=== PATIENT | female | born 1965 | race Caucasian/White ===

== ENCOUNTER 2023-11-13 10:59 | Observation (INO) ==
[2023-11-13] MEDS: ONDANSETRON INJ 2 MG/ML 2 ML VIAL IV STA (11:38)
[2023-11-13 11:56] LABS: Basophils # (auto) 0.04 K/uL (0.00-0.20); Basophils % (auto) 0.7 %; Eosinophils # (auto) 0.08 K/uL (0.00-0.50); Eosinophils % (auto) 1.3 %; Hemoglobin 15.3 g/dl (12.0-16.0); Immature Granulocytes # (auto) 0.02 K/uL (0.01-0.20); Immature Granulocytes % (auto) 0.3 %; Lymphocytes # (auto) 1.96 K/uL (1.20-3.40); Lymphocytes % (auto) 32.7 %; Mean Corpuscular Hemoglobin 28.9 pg (25.0-34.0); Mean Corpuscular Volume 85.1 fL (80.0-100.0); Mean Platelet Volume 8.4 fL (9.4-12.4); Monocytes # (auto) 0.31 K/uL (0.11-0.59); Monocytes % (auto) 5.2 %; Neutrophils # (auto) 3.59 K/uL (1.40-6.50); Neutrophils % (auto) 59.8 %; Platelet Count 344 K/uL (130-400); RDW Standard Deviation 43.5 fL (36.4-46.3); Red Blood Count 5.29 M/uL (4.20-5.40)
[2023-11-13 12:02] LABS: Partial Thromboplastin Ratio 0.9; Partial Thromboplastin Time 26 Seconds (21-31); Prothrombin Time 10.7 Seconds (9.0-12.0)
[2023-11-13 12:14] LABS: Alanine Aminotransferase 20 U/L (7-52); Albumin Globulin Ratio 1.4 (0.9-2); Albumin Level 4.6 gm/dl (3.4-5.0); Alkaline Phosphatase 67 U/L (34-104); Anion Gap 5 (3-11); Aspartate Aminotransferase 22 U/L (13-39); BUN Creatinine Ratio 31.8 (10-20); Bilirubin,Total 0.4 mg/dl (0.2-1.0); Blood Urea Nitrogen 21 mg/dl (6-23); Carbon Dioxide 28 mmol/L (21-32); Chloride 105 mmol/L (98-107); Est GFR (African American) 112.1 ml/min; Est GFR (Non-African American) 96.7 ml/min; Globulin 3.2 gm/dl (2.5-4.0); Glucose 116 mg/dl (70-99(Fasting)); Potassium 4.5 mmol/L (3.5-5.1); Sodium 138 mmol/L (136-145); Total Protein 7.8 gm/dl (6.0-8.3)
[2023-11-13 12:20] LABS: Troponin I High Sensitivity 2.7 pg/ml (0-14)
--- NOTE | 2023-11-13 12:46 | Emergency Department Note ---
Impression & Plan Vertigo, Hypertension ED Provider Note Name: NANI MENESES Age: 58 Sex: Female Arrives Via: Ambulance Informant: Patient ED Provider: Julian Nicholas MD Chief Complaint: Dizziness Impression: As per impressions above Medical Decision Makin-year-old female arrives for evaluation of dizziness. Onset over the last evening. Seems very much vertiginous in nature with horizontal nystagmus no strokelike findings no trauma. Does have some vague photophobia but no nuchal rigidity and otherwise has no evidence of meningitis. Laboratory workup is benign. CT of the head is unremarkable. She was given Ativan and meclizine with mild improvement but continues to have pretty significant symptoms with sitting up. Attempted second round and quite prolonged monitoring in the ER over several hours. Unfortunately symptoms persist. Due to this hospitalist was consulted for further management. Triage/Nursing Notes reviewed by Me Differential:Benign positional vertigo, dehydration, hypovolemia, anemia, tumor, infection, hypoglycemia, electrolyte abnormalities, cardiac sources, intracerebral event, toxicologic, neurologic, as well as other pathologies. Vital Signs: reviewed and remarkable for hypertension Interventions: Ativan 1 mg IV x 2, meclizine 25 mg p.o. x 2, normal saline bolus 1 L IV Labs:ED labs Reviewed by me and remarkable for no significant abnormalities Imaging:CT of the head without contrast as per my informal interpretation reveals no intracranial hemorrhage or mass effect. Confirmed by radiologist. EKG:As per my interpretation. Indication new onset vertigo. Normal sinus rhythm at 79 bpm QTc 421. There is no ectopy nor ischemia. Compared to EKG from 11/14/2023 there is no acute change. Cardiac/Tele Monitoring: Cardiac Monitoring: An Order was placed for continuous cardiac monitoring. The monitor shows a rate of 75 with a normal sinus rhythm. Consults:Discussed with Dr Whittington of the [facility] hospitalist service who will evaluate and bring in for further management. Plan: Disposition:Hospitalization. Condition: Good History of Present Illness: 58-year-old female arrives for evaluation of dizziness. Onset last evening gradually worsening. Associated with some mild frontal headache and some mild photophobia. Denies any photophobia or neck stiffness. No fevers, chills, neurologic deficits. Does have some mild difficulty walking due to dizziness. States the world is spinning on her. States she cannot focus anything due to spinning. She admits she is moderately dehydrated on a regular basis. She also admits that she recently traveled to the area and has been under fair amount of stress helping her mother. No medications prior to arrival. No falls, trauma, injuries. No blood thinner use. No chest pain, shortness of breath abdominal pain, back pain, urinary symptoms, diarrhea, leg swelling, calf pain or other concerning signs or symptoms. No history of blood clotting or bleeding issues. Past Medical History: None Home Medications: None Allergies: No known drug allergies Vitals:Blood Pressure: 168/104, Pulse 74, RR 20, T 36.5 C, O2 100% on RA Physical Exam: GENERAL: Patient is very uncomfortable appearing appearing and in mild distress. HEAD: ATNC RESPIRATORY: No dyspnea. Clear to auscultation and equal bilaterally. CARDIOVASCULAR: Regular rate and rhythm.No murmur appreciated. GASTROINTESTINAL: Abdomen soft, non-tender, no peritonitis. EXTREMITIES: Normal motion all extremities, no cyanosis, no edema. NEUROLOGIC: Alert and oriented. No focal neurologic deficits appreciated. Strong horizontal nystagmus bilaterally. SKIN: No rash, no jaundice, no diaphoresis. PSYCH: Appropriate GCS: 15 ED Course: Times/Reassessments: Persistent symptoms despite medications and time in the ER. Agreeable to hospitalization. Julian Nicholas MD Past Med/Surg History Social History Smoking Status: Never smoker Hx Alcohol Use: No Hx Substance Use: No Preferred Language: Turkish Communication Ability: Effective Beliefs That Will Affect Care: None Current Living Situation: Alone Feels Safe at Home: Yes Safety Concerns: Feels Safe At This Time Allergies Allergies Allergy/AdvReac Type Severity Reaction Status Date / Time codeine Allergy Unknown STRONG Verified 11/13/23 15:26 FAMILY HX--ALLERGY Home Meds Home Medications Medication Instructions Recorded Confirmed inulin-sorbitol 2 gram chewable 2 tab PO DAILY 11/13/23 11/13/23 tablet meloxicam 7.5 mg tablet 7.5 mg PO DAILY PRN Pain 11/13/23 11/13/23 omega 7-peu-slu-fish oil 1,000 mg 2 cap PO DAILY 11/13/23 11/13/23 (120 mg-180 mg) capsule (Fish Oil) tramadol 50 mg tablet 50 mg PO DIRECTED PRN Pain 11/13/23 11/13/23 Results & Data (ED) Vital Signs Vital Signs - 24 hr 11/13/23 11:08 11/13/23 13:43 11/13/23 13:47 Temperature 36.5 C Temperature Source Temporal Artery Scan Pulse Rate 75 68 Pulse Rate [Right Finger] 72 Pulse Rate from SpO2 Sensor Pulse Rhythm Regular Pulse Strength Normal Respiratory Rate 20 20 16 Respiratory Effort / Characteristics Non-Labored Spontaneous Respiratory Depth Normal Respiratory Pattern Regular Blood Pressure 168/104 H Blood Pressure [Right Arm] 171/95 H Blood Pressure Mean 125 Blood Pressure Mean [Right Arm] 120 Blood Pressure Position Sitting Pulse Oximetry 100 96 97 Oxygen Delivery Method Room Air Room Air Room Air Oxygen Flow Rate Sepsis Recent Fever Within 48 Hours No Sepsis New/Unexplained Change in Mental Status No Sepsis Action Taken by Nursing No Action Required 11/13/23 13:47 11/13/23 13:50 11/13/23 14:00 Temperature Temperature Source Pulse Rate 75 63 Pulse Rate [Right Finger] Pulse Rate from SpO2 Sensor 73 Pulse Rhythm Pulse Strength Respiratory Rate 17 Respiratory Effort / Characteristics Respiratory Depth Respiratory Pattern Blood Pressure 140/89 Blood Pressure [Right Arm] Blood Pressure Mean 112 Blood Pressure Mean [Right Arm] Blood Pressure Position Pulse Oximetry 95 Oxygen Delivery Method Oxygen Flow Rate Sepsis Recent Fever Within 48 Hours Sepsis New/Unexplained Change in Mental Status Sepsis Action Taken by Nursing 11/13/23 14:00 11/13/23 14:30 11/13/23 14:30 Temperature Temperature Source Pulse Rate 61 71 Pulse Rate [Right Finger] Pulse Rate from SpO2 Sensor 60 70 Pulse Rhythm Pulse Strength Respiratory Rate 17 16 Respiratory Effort / Characteristics Respiratory Depth Respiratory Pattern Blood Pressure 167/98 H Blood Pressure [Right Arm] Blood Pressure Mean 139 Blood Pressure Mean [Right Arm] Blood Pressure Position Pulse Oximetry 95 98 Oxygen Delivery Method Oxygen Flow Rate Sepsis Recent Fever Within 48 Hours Sepsis New/Unexplained Change in Mental Status Sepsis Action Taken by Nursing 11/13/23 14:58 11/13/23 15:00 11/13/23 15:01 Temperature Temperature Source Pulse Rate 74 Pulse Rate [Right Finger] Pulse Rate from SpO2 Sensor 72 Pulse Rhythm Pulse Strength Respiratory Rate 16 Respiratory Effort / Characteristics Respiratory Depth Respiratory Pattern Blood Pressure 185/95 H Blood Pressure [Right Arm] Blood Pressure Mean 122 Blood Pressure Mean [Right Arm] Blood Pressure Position Pulse Oximetry 98 98 Oxygen Delivery Method Room Air Oxygen Flow Rate 0 Sepsis Recent Fever Within 48 Hours Sepsis New/Unexplained Change in Mental Status Sepsis Action Taken by Nursing 11/13/23 15:08 11/13/23 15:30 11/13/23 16:00 Temperature Temperature Source Pulse Rate 63 Pulse Rate [Right Finger] 73 Pulse Rate from SpO2 Sensor Pulse Rhythm Pulse Strength Respiratory Rate 19 15 Respiratory Effort / Characteristics Non-Labored Spontaneous Respiratory Depth Normal Respiratory Pattern Regular Blood Pressure 153/86 H Blood Pressure [Right Arm] 185/95 H Blood Pressure Mean 117 Blood Pressure Mean [Right Arm] 125 Blood Pressure Position Pulse Oximetry 97 Oxygen Delivery Method Room Air Oxygen Flow Rate Sepsis Recent Fever Within 48 Hours Sepsis New/Unexplained Change in Mental Status Sepsis Action Taken by Nursing 11/13/23 16:00 11/13/23 16:30 11/13/23 16:30 Temperature Temperature Source Pulse Rate 64 84 Pulse Rate [Right Finger] Pulse Rate from SpO2 Sensor 65 81 Pulse Rhythm Pulse Strength Respiratory Rate 18 22 Respiratory Effort / Characteristics Respiratory Depth Respiratory Pattern Blood Pressure 136/94 Blood Pressure [Right Arm] Blood Pressure Mean 106 Blood Pressure Mean [Right Arm] Blood Pressure Position Pulse Oximetry 100 98 Oxygen Delivery Method Room Air Oxygen Flow Rate Sepsis Recent Fever Within 48 Hours Sepsis New/Unexplained Change in Mental Status Sepsis Action Taken by Nursing 11/13/23 17:00 11/13/23 17:30 11/13/23 17:40 Temperature Temperature Source Pulse Rate 61 63 71 Pulse Rate [Right Finger] Pulse Rate from SpO2 Sensor Pulse Rhythm Pulse Strength Respiratory Rate 14 14 Respiratory Effort / Characteristics Respiratory Depth Respiratory Pattern Blood Pressure Blood Pressure [Right Arm] Blood Pressure Mean Blood Pressure Mean [Right Arm] Blood Pressure Position Pulse Oximetry Oxygen Delivery Method Oxygen Flow Rate Sepsis Recent Fever Within 48 Hours Sepsis New/Unexplained Change in Mental Status Sepsis Action Taken by Nursing 11/13/23 18:00 Temperature Temperature Source Pulse Rate 69 Pulse Rate [Right Finger] Pulse Rate from SpO2 Sensor Pulse Rhythm Pulse Strength Respiratory Rate 8 L Respiratory Effort / Characteristics Respiratory Depth Respiratory Pattern Blood Pressure Blood Pressure [Right Arm] Blood Pressure Mean Blood Pressure Mean [Right Arm] Blood Pressure Position Pulse Oximetry Oxygen Delivery Method Oxygen Flow Rate Sepsis Recent Fever Within 48 Hours Sepsis New/Unexplained Change in Mental Status Sepsis Action Taken by Nursing Laboratory Data 11/14/23 04:16 11/14/23 04:16 Lab Results 11/13/23 Range/Units 11:40 WBC 6.00 (4.8-10.8) K/ul RBC 5.29 (4.20-5.40) M/uL Hgb 15.3 (12.0-16.0) g/dl Hct 45.0 (37.0-47.0) % MCV 85.1 (80.0-100.0) fL MCH 28.9 (25.0-34.0) pg MCHC 34.0 (32.0-36.0) g/dL RDW Std Deviation 43.5 (36.4-46.3) fL RDW Coeff of Parrish 14.0 (11.5-14.5) % Plt Count 344 (130-400) K/uL MPV 8.4 L (9.4-12.4) fL Immature Gran % (Auto) 0.3 % Neut % (Auto) 59.8 % Lymph % (Auto) 32.7 % [place] % (Auto) 5.2 % Eos % (Auto) 1.3 % Baso % (Auto) 0.7 % Neut # (Auto) 3.59 (1.40-6.50) K/uL Lymph # (Auto) 1.96 (1.20-3.40) K/uL [place] # (Auto) 0.31 (0.11-0.59) K/uL Eos # (Auto) 0.08 (0.00-0.50) K/uL Baso # (Auto) 0.04 (0.00-0.20) K/uL Immature Gran # (Auto) 0.02 (0.01-0.20) K/uL PT 10.7 (9.0-12.0) Seconds INR 1.0 (0.9-1.1) APTT 26 (21-31) Seconds PTT Ratio 0.9 Sodium 138 (136-145) mmol/L Potassium 4.5 (3.5-5.1) mmol/L Chloride 105 (98-107) mmol/L Carbon Dioxide 28 (21-32) mmol/L Anion Gap 5 (3-11) BUN 21 (6-23) mg/dl Creatinine 0.66 (0.6-1.2) mg/dl Est Cr Clr Drug Dosing Not Reportable Est GFR ( Amer) 112.1 ml/min Est GFR (Non-Af Amer) 96.7 ml/min BUN/Creatinine Ratio 31.8 H (10-20) Glucose 116 H (70-99(Fasting)) mg/dl Calcium 10.0 (8.6-10.3) mg/dl Total Bilirubin 0.4 (0.2-1.0) mg/dl AST 22 (13-39) U/L ALT 20 (7-52) U/L Alkaline Phosphatase 67 (34-104) U/L Troponin I High Sens 2.7 (0-14) pg/ml Total Protein 7.8 (6.0-8.3) gm/dl Albumin 4.6 (3.4-5.0) gm/dl Globulin 3.2 (2.5-4.0) gm/dl Albumin/Globulin Ratio 1.4 (0.9-2) Administered Medications Ketorolac Tromethamine (Ketorolac Tromethamine 15 Mg/Ml Vial) 15 mg IV Q6H PRN PRN Reason: Pain Stop: 11/18/23 22:33 Last Admin: 11/13/23 22:50 Dose: 15 mg Documented By: CHARLEEN Discontinued Medications Sodium Chloride (Nss) 1,000 mls @ 999 mls/hr IV .Q1H1M ONE Stop: 11/13/23 13:43 Last Infusion: 11/13/23 14:29 Dose: Infused Documented By: Admin: 11/13/23 13:15 Dose: 999 mls/hr Documented By: JOHANNA Sodium Chloride (Nss) 1,000 mls @ 100 mls/hr IV .Q10H SABAS Stop: 12/13/23 17:59 Last Infusion: 11/14/23 08:32 Dose: Infused Documented By: Admin: 11/14/23 04:24 Dose: 100 mls/hr Documented By: Infusion: 11/14/23 04:23 Dose: Infused Documented By: Admin: 11/13/23 18:19 Dose: 100 mls/hr Documented By: MARK Ketorolac Tromethamine (Ketorolac Tromethamine 15 Mg/Ml Vial) 15 mg IV NOW STA Stop: 11/13/23 12:44 Last Admin: 11/13/23 13:14 Dose: 15 mg Documented By: JOHANNA Lorazepam (Lorazepam 1 Mg/1 Ml Syr Ed Inj Use) 1 mg IV ONE STA Stop: 11/13/23 12:44 Last Admin: 11/13/23 13:14 Dose: 1 mg Documented By: JOHANNA Lorazepam (Lorazepam 1 Mg/1 Ml Syr Ed Inj Use) 1 mg IV ONE STA Stop: 11/13/23 15:28 Last Admin: 11/13/23 15:34 Dose: 1 mg Documented By: MARK Meclizine HCl (Meclizine Hcl 25 Mg Tab) 25 mg PO NOW STA Stop: 11/13/23 12:44 Last Admin: 11/13/23 13:14 Dose: 25 mg Documented By: JOHANNA Meclizine HCl (Meclizine Hcl 25 Mg Tab) 25 mg PO NOW STA Stop: 11/13/23 15:28 Last Admin: 11/13/23 15:33 Dose: 25 mg Documented By: MARK Ondansetron HCl (Ondansetron Inj 2 Mg/Ml 2 Ml Vial) 4 mg IV NOW STA Stop: 11/13/23 11:11 Last Admin: 11/13/23 11:38 Dose: 4 mg Documented By: SAMUEL Imaging Data Radiologist's Impression: Brain MRI 11/13/23 17:59 Brain MRI WITHOUT CONTRAST HISTORY: persistent vertigo- r/o post circulation pathology TECHNIQUE: Multiplanar multisequence MRI of the brain was performed without the use of contrast. COMPARISON STUDY: None. FINDINGS: There are no areas of restricted diffusion to suggest acute infarction. The midline structures are intact. The paranasal sinuses are clear. The mastoid air cells are clear. The ventricles and sulci are within normal limits for age. There is no mass, hematoma, midline shift. The major vascular flow-voids at the skull base are well maintained. There are few adjacent punctate foci of T2 hyperintensity seen within the periventricular white matter of the left frontal lobe best seen on coronal FLAIR image 7. These are of doubtful clinical significance and could be due to an old insult/injury. IMPRESSION: No acute intracranial abnormality. ACT 112: Negative or not required by law. Electronically signed by: Bertin Nguyen M.D. 11/14/2023 7:24 AM Discharge Plan Visit Data Chief Complaint: Vertigo ED Provider: Julian Nicholas Discharge Problem: Vertigo, Hypertension Patient Disposition: Admitted As Inpatient Discharge Instructions Interventions: ED Discharge Assessment Last Done: 11/13/23 22:03 Discharge Problem: Hypertension Qualifiers: Hypertension type: primary hypertension Qualified Code(s): I10 - Essential (primary) hypertension
[2023-11-13] MEDS: KETOROLAC TROMETHAMINE 15 MG/ML VIAL IV STA (13:14)
[2023-11-13] MEDS: MECLIZINE HCL 25 MG TAB PO STA ×2 (13:14→15:33)
[2023-11-13] MEDS: LORazepam 1 MG/1 ML SYR ED Inj Use IV STA ×2 (13:14→15:34)
[2023-11-13] MEDS: SODIUM CHLORIDE 0.9% 1,000 ML IV ONE (13:15)
--- NOTE | 2023-11-13 13:19 | CT Scan Report ---
CT head/brain wo con CLINICAL HISTORY: New onset vertigo, no history of similar Technique: Contiguous axial CT images of the head were acquired from the base of the skull to the magalis yogesh without intravenous contrast administration. Images were viewed in brain, subdural and bone windo ws. Automated dose lowering techniques and/or adjustment according to patient size were utilized for this exam. Comparison: None available at the time of this dictation. Findings: The ventricles, basal cisterns, and cerebral sulci are normal. There is no acute intracranial hemorrh age or evidence of acute territorial infarction. Neither mass effect, shift of the midline structures , nor abnormal extra-axial fluid collections are shown. Imaged portions of the paranasal sinuses and mastoid air cells are clear. The orbits appear normal. There are no acute fractures of the calvaria or scalp swelling. Impression: No acute intracranial hemorrhage, no evidence of acute territorial infarction or other acute intracra nial disease process. ACT 112: Negative or not required by law. Electronically signed by: Ag Stout M.D. 11/13/2023 1:17 PM
--- NOTE | 2023-11-13 14:10 | XRay Report ---
XR chest 1V not portable CLINICAL HISTORY: Chest pain, nonspecific TECHNIQUE: Single frontal radiograph of the chest was obtained. Comparison: None available at the time of this dictation. FINDINGS: No lines and tubes are seen. The cardiomediastinal silhouette is normal. The lungs are clear. No evid ence of pleural effusion or pneumothorax. IMPRESSION: No acute chest disease. ACT 112: Negative or not required by law. Electronically signed by: Ag Stout M.D. 11/13/2023 2:08 PM
--- NOTE | 2023-11-13 17:32 | History & Physical Report ---
Date of Service November 13, 2023 Assessment & Plan (1) Vertigo: (2) Hypertension: (3) Hyperlipidemia: (4) History of Graves' disease: Plan 58-year-old female with history of Graves' disease status post ablation, hypertension, hyperlipidemia who presented with persistent vertigo symptoms since yesterday Vertigo-suspected peripheral, rule out central cause. Vertigo seems to have improved after multiple doses of medication in the ED. Hornell-Hallpike negative in the ED during my encounter. With history of hypertension and hyperlipidemia not on meds and prolonged vertiginous symptoms, will get MRI brain to rule out posterior circulation pathology. Will continue gentle IV fluids, meclizine 3 times daily pain, Zofran IV as needed, Telemetry. Consult PT OT eval or neuroconsult eval in a.m if persistent symptoms. Hypertension-not on meds, diet controlled per patient. Will monitor. Hyperlipidemia-not on meds, diet controlled per patient. Will check lipid panel in AM. Prediabetes per patient-will check A1c in AM. Not on meds. Diet controlled. History of Graves' disease status post ablation at age 39-will check TFT in AM. DVT prophylaxis-consider chemoprophylaxis if not discharged tomorrow Disposition-observation on telemetry Full code Time spent-approximately 80 minutes History of Present Illness Chief Complaint: persistent vertigo Primary Care Provider: NO PCP 58 year old female with h/o Grave's disease s/p ablation 20 years back, HTN and HLD not on meds who presented to the ED with persistent vertiginous symptoms since last night. Patient is from [place] and moved to [place] last week to take care of her mother. States 2 nights ago has had some dizziness however it resolved and she was able to do everything yesterday. Last night around 8 PM, she started having severe vertigo which persisted until this morning. She also had 4 episodes of vomiting when she went to the bathroom. Since the vertigo was not improving, she came to the emergency. In ED, she was given multiple doses of meclizine and Ativan and with Toradol with some improvement in her vertigo. She was able to go to the bathroom although the vertigo had not fully resolved. Denies any similar symptoms before. Denies dehydration. Denies any diplopia, dysarthria however gait was impaired due to vertigo. Denies any numbness, weakness, tingling. Denies history of stroke or mini stroke. Denies history of cardiopulmonary disease. Patient does not smoke or drink alcohol. No history of substance abuse. No fever, chills, chest pain shortness of breath. She did complain of some eye pain and photosensitivity which is improved with Toradol and an ice application. She denies any recent viral or ENT infection and denies any sick contacts. PMH-Graves' disease treated with ablation, hypertension and hyperlipidemia on diet control PSH-not significant Allergic history-allergic to codeine Social history-does not smoke or drink alcohol. Allergies Allergy/AdvReac Type Severity Reaction Status Date / Time codeine Allergy Unknown STRONG Verified 11/13/23 15:26 FAMILY HX--ALLERGY Home Medications Medication Instructions Recorded Confirmed Type inulin-sorbitol 2 gram chewable 2 tab PO DAILY 11/13/23 11/13/23 History tablet meloxicam 7.5 mg tablet 7.5 mg PO DAILY PRN Pain 11/13/23 11/13/23 History omega 2-dde-vrb-fish oil 1,000 mg 2 cap PO DAILY 11/13/23 11/13/23 History (120 mg-180 mg) capsule (Fish Oil) tramadol 50 mg tablet 50 mg PO DIRECTED PRN Pain 11/13/23 11/13/23 History Past Med/Surg History Social History Smoking Status: Never smoker Preferred Language: Arabic Feels Safe at Home: Yes Review of Systems Review of Systems: All systems reviewed & are unremarkable except as noted in HPI & below Physical Exam Physical Exam: General: Lying comfortably in bed, not in distress, on room air HEENT: EOMI, MARC, MMM Chest: Clear breath sounds bilaterally, no wheezes or crackles CVS: Regular rate and rhythm, normal heart sounds, no murmur Abdomen: Soft, non tender, not distended, normal bowel sounds Neuro: Awake, alert, oriented, conversing well, no dysarthria. Strength 5/5, CN intact, finger nose test normal. Hornell Hallpike negative. Extremities: No cyanosis, clubbing or edema Results & Data Results & Data Vital Signs (Past 12 Hours) Vital Signs Temp Pulse Pulse Resp BP BP Pulse Ox 11/13/23 17:00 61 14 11/13/23 16:30 84 22 98 11/13/23 16:30 136/94 11/13/23 16:00 64 18 100 11/13/23 16:00 153/86 H 11/13/23 15:30 63 15 11/13/23 15:08 73 19 185/95 H 97 11/13/23 15:01 185/95 H 11/13/23 15:00 74 16 98 11/13/23 14:58 98 11/13/23 14:30 167/98 H 11/13/23 14:30 71 16 98 11/13/23 14:00 61 17 95 11/13/23 14:00 140/89 11/13/23 13:50 63 11/13/23 13:47 75 17 95 11/13/23 13:47 72 16 171/95 H 97 11/13/23 13:43 68 20 96 11/13/23 11:08 36.5 C 75 20 168/104 H 100 O2 Del Method O2 Flow Rate 11/13/23 17:00 11/13/23 16:30 Room Air 11/13/23 16:30 11/13/23 16:00 11/13/23 16:00 11/13/23 15:30 11/13/23 15:08 Room Air 11/13/23 15:01 11/13/23 15:00 11/13/23 14:58 Room Air 0 11/13/23 14:30 11/13/23 14:30 11/13/23 14:00 11/13/23 14:00 11/13/23 13:50 11/13/23 13:47 11/13/23 13:47 Room Air 11/13/23 13:43 Room Air 11/13/23 11:08 Room Air Laboratory Results Short CBC 11/13/23 Range/Units 11:40 WBC 6.00 (4.8-10.8) K/ul Hgb 15.3 (12.0-16.0) g/dl Hct 45.0 (37.0-47.0) % Plt Count 344 (130-400) K/uL BMP 11/13/23 11:40 Sodium 138 Potassium 4.5 Chloride 105 Carbon Dioxide 28 BUN 21 Creatinine 0.66 Glucose 116 H Calcium 10.0 Liver Function 11/13/23 Range/Units 11:40 Total Bilirubin 0.4 (0.2-1.0) mg/dl AST 22 (13-39) U/L ALT 20 (7-52) U/L Alkaline Phosphatase 67 (34-104) U/L Albumin 4.6 (3.4-5.0) gm/dl Diagnostic Findings Chest X-Ray 11/13/23 11:10 XR chest 1V not portable CLINICAL HISTORY: Chest pain, nonspecific TECHNIQUE: Single frontal radiograph of the chest was obtained. Comparison: None available at the time of this dictation. FINDINGS: No lines and tubes are seen. The cardiomediastinal silhouette is normal. The lungs are clear. No evidence of pleural effusion or pneumothorax. IMPRESSION: No acute chest disease. ACT 112: Negative or not required by law. Electronically signed by: Ag Stout M.D. 11/13/2023 2:[address] 11/13/23 12:43 CT head/brain wo con CLINICAL HISTORY: New onset vertigo, no history of similar Technique: Contiguous axial CT images of the head were acquired from the base of the skull to the vertex without intravenous contrast administration. Images were viewed in brain, subdural and bone windows. Automated dose lowering techniques and/or adjustment according to patient size were utilized for this exam. Comparison: None available at the time of this dictation. Findings: The ventricles, basal cisterns, and cerebral sulci are normal. There is no acute intracranial hemorrhage or evidence of acute territorial infarction. Neither mass effect, shift of the midline structures, nor abnormal extra-axial fluid collections are shown. Imaged portions of the paranasal sinuses and mastoid air cells are clear. The orbits appear normal. There are no acute fractures of the calvaria or scalp swelling. Impression: No acute intracranial hemorrhage, no evidence of acute territorial infarction or other acute intracranial disease process. ACT 112: Negative or not required by law. Electronically signed by: Ag Stout M.D. 11/13/2023 1:17 PM
[2023-11-13] MEDS: SODIUM CHLORIDE 0.9% 1,000 ML IV SCH (18:19)
[2023-11-13] MEDS ORDERED: ONDANSETRON INJ 2 MG/ML 2 ML VIAL IV PRN (22:34)
[2023-11-13] MEDS ORDERED: traMADol HCL 50 MG TABLET PO PRN ×2 (22:34→22:48)
[2023-11-13] MEDS ORDERED: MECLIZINE HCL 25 MG TAB PO PRN (22:34)
[2023-11-13] MEDS: KETOROLAC TROMETHAMINE 15 MG/ML VIAL IV PRN (22:50)
[2023-11-14 05:04] LABS: Hematocrit (blood only) 39.8 % (37.0-47.0); Mean Corpuscular Hemoglobin 28.4 pg (25.0-34.0); Mean Corpuscular Hgb Conc 32.7 g/dL (32.0-36.0); Mean Corpuscular Volume 86.9 fL (80.0-100.0); Mean Platelet Volume 8.5 fL (9.4-12.4); Platelet Count 293 K/uL (130-400); RDW Coefficient of Variation 14.1 % (11.5-14.5); RDW Standard Deviation 45.3 fL (36.4-46.3); Red Blood Count 4.58 M/uL (4.20-5.40); White Blood Count 6.39 K/ul (4.8-10.8)
[2023-11-14 05:19] LABS: BUN Creatinine Ratio 21.3 (10-20); Calcium 9.1 mg/dl (8.6-10.3); Chol HDL Ratio 4.6 (0-5); Creatinine Clr Calc Pharmacy 101.3 ml/min; Est GFR (African American) 101.1 ml/min; Est GFR (Non-African American) 87.2 ml/min
[2023-11-14 05:33] LABS: Thyroid Stimulating Hormone 3.448 uIu/ml (0.300-4.500)
--- NOTE | 2023-11-14 06:09 | Electrocardiogram Report ---
Test Reason : Blood Pressure : / mmHG Vent. Rate : 079 BPM Atrial Rate : 079 BPM P-R Int : 150 ms QRS Dur : 074 ms QT Int : 368 ms P-R-T Axes : 025 024 036 degrees QTc Int : 421 ms Normal sinus rhythm Anterior infarct , age undetermined Abnormal ECG No previous ECGs available Confirmed by Omer Garrison ([id number]) on 11/14/2023 6:08:59 AM Referred By: Confirmed By:Omer Garrison
[2023-11-14 07:11] LABS: Estimated Average Glucose 111 mg/dl; Hemoglobin A1C 5.5 % (4.5-5.6)
--- NOTE | 2023-11-14 07:27 | Magnetic Resonance Report ---
Brain MRI WITHOUT CONTRAST HISTORY: persistent vertigo- r/o post circulation pathology TECHNIQUE: Multiplanar multisequence MRI of the brain was performed without the use of contrast. COMPARISON STUDY: None. FINDINGS: There are no areas of restricted diffusion to suggest acute infarction. The midline structu res are intact. The paranasal sinuses are clear. The mastoid air cells are clear. The ventricles and sulci are within normal limits for age. There is no mass, hematoma, midline shift. The major vascular flow-voids at the skull base are well maintained. There are few adjacent punctate foci of T2 hyperin tensity seen within the periventricular white matter of the left frontal lobe best seen on coronal FL AIR image 7. These are of doubtful clinical significance and could be due to an old insult/injury. IMPRESSION: No acute intracranial abnormality. ACT 112: Negative or not required by law. Electronically signed by: Bertin Nguyen M.D. 11/14/2023 7:24 AM
--- NOTE | 2023-11-14 08:40 | Neurology Consultation ---
Date of Consultation November 14, 2023 Assessment & Plan (1) Vestibular neuronitis: 58F with a PMH of HLD, HTN and graves who presents with vertigo. She reports feeling better and her exam is non-focal. MRI is negative for acute stroke but does show some white matter disease which is non-specific and unrelated to her current symptoms. Symptoms are most consistent with vestibular neuritis. Plan -- meclizine PRN -- vestibular rehab if any symptoms persist Telehealth Consultation Telehealth Information Telehealth Information: I performed this visit using a real-time telehealth connection between my location and the patients location ([facility]). After connecting through interactive tele-video, patient was identified by name and date of and/or wristband check.Patient (or authorized healthcare front office representative) was informed that this was a telemedicine visit and it was being conducted confidentially over secure lines. My office door was closed and no one else was present in the room with me.Patient (or authorized healthcare front office representative) provided consent to proceed with the visit, expressed an understanding of privacy and security of the telemedicine visit, and gave permission to have a hospital front office representative in the room in order to assist with the visit and to conduct portions of the visit, as needed. I informed the patient (or authorized healthcare front office representative) that I reviewed their record and presented the opportunity for them to ask any questions regarding the visit today. The patient agreed to participate. History of Present Illness Reason for Consultation: Dizziness, abnormal MRI Attending Physician: Tony Hansen MD History of Present Illness She reports that on Tuesday night she had sudden onset of room spinning dizziness. She went to bed hoping that it would be better in the morning but as soon as she opened her eyes the spinning was back. she crawled to the bathroom and started throwing up. She couldn't walk and was crawling around the house and decided to call 911. Currently she reports that her symptoms are much better and have 90% resolved. She has never had symptoms like this before. She denies recent fever, chills, headache, double vision, focal weakness, or sensation changes. She does report frequent hot flashes. Allergies Allergy/AdvReac Type Severity Reaction Status Date / Time codeine Allergy Unknown STRONG Verified 11/13/23 15:26 FAMILY HX--ALLERGY Home Medications Medication Instructions Recorded Confirmed Type inulin-sorbitol 2 gram chewable 2 tab PO DAILY 11/13/23 11/13/23 History tablet meloxicam 7.5 mg tablet 7.5 mg PO DAILY PRN Pain 11/13/23 11/13/23 History omega 2-sbd-usc-fish oil 1,000 mg 2 cap PO DAILY 11/13/23 11/13/23 History (120 mg-180 mg) capsule (Fish Oil) tramadol 50 mg tablet 50 mg PO DIRECTED PRN Pain 11/13/23 11/13/23 History Patient History Social History Smoking Status: Never smoker Hx Alcohol Use: No Hx Substance Use: No Preferred Language: Georgian Communication Ability: Effective Beliefs That Will Affect Care: None Current Living Situation: Alone Feels Safe at Home: Yes Safety Concerns: Feels Safe At This Time Physical Exam Awake, alert and orientated x4. No aphasia or slurred speech. pupils equal and reactive, no nystagmus, facial sensation intact, face symmetric, tongue midline. sensation intact throughout to LT, moves extremities against gravity. Results & Data Vital Signs (Past 12 Hours) Vital Signs Temp Pulse Pulse Resp BP BP Pulse Ox 11/14/23 07:47 36.6 C 77 18 157/94 H 96 11/14/23 07:18 67 11/14/23 03:01 36.5 C 72 18 161/89 H 96 11/14/23 00:41 71 11/13/23 22:36 36.8 C 62 20 158/88 H 95 11/13/23 22:03 11/13/23 21:58 158/94 H 96 11/13/23 21:30 83 18 11/13/23 21:16 68 11/13/23 21:00 138/84 11/13/23 21:00 71 19 O2 Del Method 11/14/23 07:47 Room Air 11/14/23 07:18 11/14/23 03:01 Room Air 11/14/23 00:41 11/13/23 22:36 Room Air 11/13/23 22:03 Room Air 11/13/23 21:58 Room Air 11/13/23 21:30 11/13/23 21:16 11/13/23 21:00 11/13/23 21:00 Laboratory Results Abnormal Lab Results 11/13/23 11/14/23 11:40 04:16 WBC 6.00 6.39 RBC 5.29 4.58 Hgb 15.3 13.0 Hct 45.0 39.8 MCV 85.1 86.9 MCH 28.9 28.4 MCHC 34.0 32.7 RDW Std Deviation 43.5 45.3 RDW Coeff of Parrish 14.0 14.1 Plt Count 344 293 MPV 8.4 L 8.5 L Immature Gran % (Auto) 0.3 Neut % (Auto) 59.8 Lymph % (Auto) 32.7 [place] % (Auto) 5.2 Eos % (Auto) 1.3 Baso % (Auto) 0.7 Neut # (Auto) 3.59 Lymph # (Auto) 1.96 [place] # (Auto) 0.31 Eos # (Auto) 0.08 Baso # (Auto) 0.04 Immature Gran # (Auto) 0.02 PT 10.7 INR 1.0 APTT 26 PTT Ratio 0.9 Sodium 138 139 Potassium 4.5 4.0 Chloride 105 109 H Carbon Dioxide 28 27 Anion Gap 5 3 BUN 21 16 Creatinine 0.66 0.75 Est Cr Clr Drug Dosing Not Reportable 101.3 Est GFR ( Amer) 112.1 101.1 Est GFR (Non-Af Amer) 96.7 87.2 BUN/Creatinine Ratio 31.8 H 21.3 H Glucose 116 H 91 Estimat Average Glucose 111 Hemoglobin A1c 5.5 Calcium 10.0 9.1 Magnesium 2.0 Total Bilirubin 0.4 AST 22 ALT 20 Alkaline Phosphatase 67 Troponin I High Sens 2.7 Total Protein 7.8 Albumin 4.6 Globulin 3.2 Albumin/Globulin Ratio 1.4 Triglycerides 153 H Cholesterol 251 H LDL Cholesterol, Calc 165 VLDL Cholesterol, Calc 31 H HDL Cholesterol 55 Cholesterol/HDL Ratio 4.6 TSH 3.448 Diagnostic Findings Chest X-Ray 11/13/23 11:10 XR chest 1V not portable CLINICAL HISTORY: Chest pain, nonspecific TECHNIQUE: Single frontal radiograph of the chest was obtained. Comparison: None available at the time of this dictation. FINDINGS: No lines and tubes are seen. The cardiomediastinal silhouette is normal. The lungs are clear. No evidence of pleural effusion or pneumothorax. IMPRESSION: No acute chest disease. ACT 112: Negative or not required by law. Electronically signed by: Ag Stout M.D. 11/13/2023 2:[address] 11/13/23 12:43 CT head/brain wo con CLINICAL HISTORY: New onset vertigo, no history of similar Technique: Contiguous axial CT images of the head were acquired from the base of the skull to the vertex without intravenous contrast administration. Images were viewed in brain, subdural and bone windows. Automated dose lowering techniques and/or adjustment according to patient size were utilized for this exam. Comparison: None available at the time of this dictation. Findings: The ventricles, basal cisterns, and cerebral sulci are normal. There is no acute intracranial hemorrhage or evidence of acute territorial infarction. Neither mass effect, shift of the midline structures, nor abnormal extra-axial fluid collections are shown. Imaged portions of the paranasal sinuses and mastoid air cells are clear. The orbits appear normal. There are no acute fractures of the calvaria or scalp swelling. Impression: No acute intracranial hemorrhage, no evidence of acute territorial infarction or other acute intracranial disease process. ACT 112: Negative or not required by law. Electronically signed by: Ag Stout M.D. 11/13/2023 1:17 PM Brain MRI 11/13/23 17:59 Brain MRI WITHOUT CONTRAST HISTORY: persistent vertigo- r/o post circulation pathology TECHNIQUE: Multiplanar multisequence MRI of the brain was performed without the use of contrast. COMPARISON STUDY: None. FINDINGS: There are no areas of restricted diffusion to suggest acute infarction. The midline structures are intact. The paranasal sinuses are clear. The mastoid air cells are clear. The ventricles and sulci are within normal limits for age. There is no mass, hematoma, midline shift. The major vascular flow-voids at the skull base are well maintained. There are few adjacent punctate foci of T2 hyperintensity seen within the periventricular white matter of the left frontal lobe best seen on coronal FLAIR image 7. These are of doubtful clinical significance and could be due to an old insult/injury. IMPRESSION: No acute intracranial abnormality. ACT 112: Negative or not required by law. Electronically signed by: Bertin Nguyen M.D. 11/14/2023 7:24 AM
[2023-11-14] MEDS: ACETAMINOPHEN 325 MG TAB PO PRN (09:16)
[2023-11-14] MEDS: amLODIPine BESYLATE 5 MG TAB PO SCH (09:16)
--- NOTE | 2023-11-14 14:35 | Hospitalist Progress Note ---
Date of Service November 14, 2023 Assessment & Plan (1) Vertigo: (2) Hypertension: (3) Hyperlipidemia: (4) History of Graves' disease: Plan Per admitting service notes with addendum: 58-year-old female with history of Graves' disease status post ablation, hypertension, hyperlipidemia who presented with persistent vertigo symptoms since yesterday Vertigo-suspected peripheral, rule out central cause. Vertigo seems to have improved after multiple doses of medication in the ED. Mike-Hallpike negative in the ED during my encounter. With history of hypertension and hyperlipidemia not on meds and prolonged vertiginous symptoms, will get MRI brain to rule out posterior circulation pathology. Will continue gentle IV fluids, meclizine 3 times daily pain, Zofran IV as needed, Telemetry. Consult PT OT eval or neuroconsult eval in a.m if persistent symptoms. 11/14 Brain MRI: Neurologist consulted, evaluated by Dr. Granados Onken MRI findings showing some white matter disease which is nonspecific, unrelated to current symptoms Symptoms felt to be secondary to vestibular neuritis Patient clinically improved As needed meclizine will be prescribed upon discharge Hypertension 11/14 Blood pressure monitoring reveals persistent blood pressure elevation Amlodipine 5 mg p.o. daily started Monitor Hyperlipidemia 11/14 Triglycerides 153 Cholesterol 251 LDL 165 VLDL 31 Outpatient follow-up Prediabetes A1c 5.5 History of Graves' disease status post ablation TSH 3.4 Disposition Possible discharge to home today plan of care discussed with patient in detail and at length all questions answered she is understanding, agreeable, comfortable with the plan of care Admission and Anticipated Discharge Date Admission Date: November 13, 2023 Subjective Follow-up for dizziness, etc. Seen resting in bed, comfortable, not in distress Good spirits States she feels better overall Dizziness has resolved No focal neurologic deficits Denies ear pain, ear discharge, hearing deficits Ambulated in the hallways with no problems No other new symptom Review of Systems Review of Systems: all noted and negative except for above Results & Data Results & Data Vital Signs (Past 12 Hours) Vital Signs Temp Pulse Pulse Resp BP Pulse Ox O2 Del Method 11/14/23 11:50 36.8 C 67 18 144/89 H 94 Room Air 11/14/23 07:47 36.6 C 77 18 157/94 H 96 Room Air 11/14/23 07:18 67 04/08/24 03:01 36.5 C 72 18 161/89 H 96 Room Air all noted and reviewed including below (2) Hypertension Hypertension type: primary hypertension Qualified Code(s): I10 - Essential (primary) hypertension
--- NOTE | 2023-11-14 16:39 | Discharge Summary ---
Discharge Summary Date of Service November 14, 2023 Notes For Next Care Provider Medication Changes From Visit Meclizine-as needed for dizziness Amlodipine-for control of elevated blood pressure Admission HPI Per Admitting Provider 58 year old female with h/o Grave's disease s/p ablation 20 years back, HTN and HLD not on meds who presented to the ED with persistent vertiginous symptoms since last night. Patient is from [place] and moved to [place] last week to take care of her mother. States 2 nights ago has had some dizziness however it resolved and she was able to do everything yesterday. Last night around 8 PM, she started having severe vertigo which persisted until this morning. She also had 4 episodes of vomiting when she went to the bathroom. Since the verti go was not improving, she came to the emergency. In ED, she was given multiple doses of meclizine and Ativan and with Toradol with some improvement in her vertigo. She was able to go to the bathroom although the vertigo had not fully resolved. Denies any similar symptoms before. Denies dehydration. Denies any diplopia, dysarthria however gait was impaired due to vertigo. Denies any numbness, weakness, tingling. Denies history of stroke or mini stroke. Denies history of cardiopulmonary disease. Patient does not smoke or drink alcohol. No history of substance abuse. No fever, chills, chest pain shortness of breath. She did complain of some eye pain and photosensitivity which is improved with Toradol and an ice application. She denies any recent viral or ENT infection and denies any sick contacts. PMH-Graves' disease treated with ablation, hypertension and hyperlipidemia on diet control PSH-not significant Allergic history-allergic to codeine Social history-does not smoke or drink alcohol. Admission Exam Per Admitting Provider General: Lying comfortably in bed, not in distress, on room air HEENT: EOMI, MARC, MMM Chest: Clear breath sounds bilaterally, no wheezes or crackles CVS: Regular rate and rhythm, normal heart sounds, no murmur Abdomen: Soft, non tender, not distended, normal bowel sounds Neuro: Awake, alert, oriented, conversing well, no dysarthria. Strength 5/5, CN intact, finger nose test normal. Belsano Hallpike negative. Extremities: No cyanosis, clubbing or edema Principal Dx & Hospital Course #1 = Principal Diagnosis (1) Vertigo: (2) Hypertension: (3) Hyperlipidemia: (4) History of Graves' disease: Plan Per admitting service notes with addendum: 58-year-old female with history of Graves' disease status post ablation, hypertension, hyperlipidemia who presented with persistent vertigo symptoms since yesterday Vertigo-suspected peripheral, rule out central cause. Vertigo seems to have improved after multiple doses of medication in the ED. Mike-Hallpike negative in the ED during my encounter. With history of hypertension and hyperlipidemia not on meds and prolonged vertiginous symptoms, will get MRI brain to rule out posterior circulation pathology. Will continue gentle IV fluids, meclizine 3 times daily pain, Zofran IV as needed, Telemetry. Consult PT OT eval or neuroconsult eval in a.m if persistent symptoms. 11/14 Brain MRI: Neurologist consulted, evaluated by Dr. Granados Onken MRI findings showing some white matter disease which is nonspecific, unrelated to current symptoms Symptoms felt to be secondary to vestibular neuritis Patient clinically improved As needed meclizine will be prescribed upon discharge Hypertension 11/14 Blood pressure monitoring reveals persistent blood pressure elevation Amlodipine 5mg po daily started BP improved from 157/94 to 109/67 discharge on Amlodipine 2.5mg po daily ff up with PCP in 1 week Hyperlipidemia 11/14 Triglycerides 153 Cholesterol 251 LDL 165 VLDL 31 Outpatient follow-up Prediabetes A1c 5.5 History of Graves' disease status post ablation TSH 3.4 Disposition d/c home today plan of care discussed with patient in detail and at length all questions answered she is understanding, agreeable, comfortable with the plan of care Discharge Exam General: Lying comfortably in bed, not in distress, on room air HEENT: EOMI, MARC, MMM Chest: Clear breath sounds bilaterally, no wheezes or crackles CVS: Regular rate and rhythm, normal heart sounds, no murmur Abdomen: Soft, non tender, not distended, normal bowel sounds Neuro: Awake, alert, oriented, conversing well, no dysarthria. Strength 5/5, CN intact, finger nose test normal. Belsano Hallpike negative. Extremities: No cyanosis, clubbing or edema Updated Medication List Medication Instructions Recorded Confirmed Type inulin-sorbitol 2 gram chewable 2 tab PO DAILY 11/13/23 11/13/23 History tablet meloxicam 7.5 mg tablet 7.5 mg PO DAILY PRN Pain 11/13/23 11/13/23 History omega 2-och-mzu-fish oil 1,000 mg 2 cap PO DAILY 11/13/23 11/13/23 History (120 mg-180 mg) capsule (Fish Oil) tramadol 50 mg tablet 50 mg PO DIRECTED PRN Pain 11/13/23 11/13/23 History amlodipine 5 mg tablet (Norvasc) 2.5 mg (1/2 x 5 mg) PO QAM 30 days 11/14/23 Rx #15 tabs meclizine 25 mg tablet 25 mg PO TID PRN dizziness #20 tabs 11/14/23 Rx Hospital Stay Data Consultations 11/13/23 17:33 ED Decision to Admit Stat 11/14/23 08:05 Consult Neurology Routine Diagnostic Imagining Performed Laboratory Results WBC 6.39 K/ul (4.8-10.8) 11/14/23 04:16 RBC 4.58 M/uL (4.20-5.40) 11/14/23 04:16 Hgb 13.0 g/dl (12.0-16.0) 11/14/23 04:16 Hct 39.8 % (37.0-47.0) 11/14/23 04:16 MCV 86.9 fL (80.0-100.0) 11/14/23 04:16 MCH 28.4 pg (25.0-34.0) 11/14/23 04:16 MCHC 32.7 g/dL (32.0-36.0) 11/14/23 04:16 RDW Std Deviation 45.3 fL (36.4-46.3) 11/14/23 04:16 RDW Coeff of Parrish 14.1 % (11.5-14.5) 11/14/23 04:16 Plt Count 293 K/uL (130-400) 11/14/23 04:16 MPV 8.5 fL (9.4-12.4) L 11/14/23 04:16 Immature Gran % (Auto) 0.3 % 11/13/23 11:40 Neut % (Auto) 59.8 % 11/13/23 11:40 Lymph % (Auto) 32.7 % 11/13/23 11:40 [place] % (Auto) 5.2 % 11/13/23 11:40 Eos % (Auto) 1.3 % 11/13/23 11:40 Baso % (Auto) 0.7 % 11/13/23 11:40 Neut # (Auto) 3.59 K/uL (1.40-6.50) 11/13/23 11:40 Lymph # (Auto) 1.96 K/uL (1.20-3.40) 11/13/23 11:40 [place] # (Auto) 0.31 K/uL (0.11-0.59) 11/13/23 11:40 Eos # (Auto) 0.08 K/uL (0.00-0.50) 11/13/23 11:40 Baso # (Auto) 0.04 K/uL (0.00-0.20) 11/13/23 11:40 Immature Gran # (Auto) 0.02 K/uL (0.01-0.20) 11/13/23 11:40 PT 10.7 Seconds (9.0-12.0) 11/13/23 11:40 INR 1.0 (0.9-1.1) 11/13/23 11:40 APTT 26 Seconds (21-31) 11/13/23 11:40 PTT Ratio 0.9 11/13/23 11:40 Sodium 139 mmol/L (136-145) 11/14/23 04:16 Potassium 4.0 mmol/L (3.5-5.1) 11/14/23 04:16 Chloride 109 mmol/L (98-107) H 11/14/23 04:16 Carbon Dioxide 27 mmol/L (21-32) 11/14/23 04:16 Anion Gap 3 (3-11) 11/14/23 04:16 BUN 16 mg/dl (6-23) 11/14/23 04:16 Creatinine 0.75 mg/dl (0.6-1.2) 11/14/23 04:16 Est Cr Clr Drug Dosing 101.3 ml/min 11/14/23 04:16 Est GFR ( Amer) 101.1 ml/min 11/14/23 04:16 Est GFR (Non-Af Amer) 87.2 ml/min 11/14/23 04:16 BUN/Creatinine Ratio 21.3 (10-20) H 11/14/23 04:16 Glucose 91 mg/dl (70-99(Fasting)) 11/14/23 04:16 Estimat Average Glucose 111 mg/dl 11/14/23 04:16 Hemoglobin A1c 5.5 % (4.5-5.6) 11/14/23 04:16 Calcium 9.1 mg/dl (8.6-10.3) 11/14/23 04:16 Magnesium 2.0 mg/dl (1.7-2.4) 11/14/23 04:16 Total Bilirubin 0.4 mg/dl (0.2-1.0) 11/13/23 11:40 AST 22 U/L (13-39) 11/13/23 11:40 ALT 20 U/L (7-52) 11/13/23 11:40 Alkaline Phosphatase 67 U/L (34-104) 11/13/23 11:40 Troponin I High Sens 2.7 pg/ml (0-14) 11/13/23 11:40 Total Protein 7.8 gm/dl (6.0-8.3) 11/13/23 11:40 Albumin 4.6 gm/dl (3.4-5.0) 11/13/23 11:40 Globulin 3.2 gm/dl (2.5-4.0) 11/13/23 11:40 Albumin/Globulin Ratio 1.4 (0.9-2) 11/13/23 11:40 Triglycerides 153 mg/dl (0-150) H 11/14/23 04:16 Cholesterol 251 mg/dl (0-200) H 11/14/23 04:16 LDL Cholesterol, Calc 165 mg/dl 11/14/23 04:16 VLDL Cholesterol, Calc 31 mg/dl (0-30) H 11/14/23 04:16 HDL Cholesterol 55 mg/dl 11/14/23 04:16 Cholesterol/HDL Ratio 4.6 (0-5) 11/14/23 04:16 TSH 3.448 uIu/ml (0.300-4.500) 11/14/23 04:16 Impressions Chest X-Ray 11/13/23 11:10 XR chest 1V not portable CLINICAL HISTORY: Chest pain, nonspecific TECHNIQUE: Single frontal radiograph of the chest was obtained. Comparison: None available at the time of this dictation. FINDINGS: No lines and tubes are seen. The cardiomediastinal silhouette is normal. The lungs are clear. No evidence of pleural effusion or pneumothorax. IMPRESSION: No acute chest disease. ACT 112: Negative or not required by law. Electronically signed by: Ag Stout M.D. 11/13/2023 2:[address] 11/13/23 12:43 CT head/brain wo con CLINICAL HISTORY: New onset vertigo, no history of similar Technique: Contiguous axial CT images of the head were acquired from the base of the skull to the vertex without intravenous contrast administration. Images were viewed in brain, subdural and bone windows. Automated dose lowering techniques and/or adjustment according to patient size were utilized for this exam. Comparison: None available at the time of this dictation. Findings: The ventricles, basal cisterns, and cerebral sulci are normal. There is no acute intracranial hemorrhage or evidence of acute territorial infarction. Neither mass effect, shift of the midline structures, nor abnormal extra-axial fluid collections are shown. Imaged portions of the paranasal sinuses and mastoid air cells are clear. The orbits appear normal. There are no acute fractures of the calvaria or scalp s welling. Impression: No acute intracranial hemorrhage, no evidence of acute territorial infarction or other acute intracranial disease process. ACT 112: Negative or not required by law. Electronically signed by: Ag Stout M.D. 11/13/2023 1:17 PM Brain MRI 11/13/23 17:59 Brain MRI WITHOUT CONTRAST HISTORY: persistent vertigo- r/o post circulation pathology TECHNIQUE: Multiplanar multisequence MRI of the brain was performed without the use of contrast. COMPARISON STUDY: None. FINDINGS: There are no areas of restricted diffusion to suggest acute infarction. The midline structures are intact. The paranasal sinuses are clear. The mastoid air cells are clear. The ventricles and sulci are within normal limits for age. There is no mass, hematoma, midline shift. The major vascular flow-voids at the skull base are well maintained. There are few adjacent punctate foci of T2 hyperintensity seen within the periventricular white matter of the left frontal lobe best seen on coronal FLAIR image 7. These are of doubtful clinical significance and could be due to an old insult/injury. IMPRESSION: No acute intracranial abnormality. ACT 112: Negative or not required by law. Electronically signed by: Bertin Nguyen M.D. 11/14/2023 7:24 AM Pending Results Patient Have Any Pending Studies at Discharge: No Discharge Instructions Given to Patient (Per Discharging Provider) PLEASE REFER TO YOUR NEW MEDICATION LIST AND FOLLOW INSTRUCTIONS CAREFULLY. YOUR NEW MEDICATIONS INCLUDE: Meclizine-as needed for dizziness Amlodipine-for control of elevated blood pressure PLEASE CALL YOUR PRIMARY CARE PHYSICIAN OR RETURN TO THE ER IF WITH WORSENING OF SYMPTOMS, INCLUDING Dizziness, nausea or vomiting, Chest pain, shortness of breath, palpitations, dizziness, etc. FOLLOW UP WITH PRIMARY CARE PHYSICIAN THIS WEEK. PLEASE CALL [facility] AT [phone] TO SCHEDULE AN APPOINTMENT. Total Time Total Time Spent Total Time Spent (In Minutes): >30 minutes
== END 2023-11-14 17:48 | disposition home or self-care (01) ==
LOC: ED 10:59 → 2W 10:59 → SUATTDRO 18:03 → 2W 22:03